=== PATIENT | female | born 1970 | race American Indian/Alaskan Native ===

== ENCOUNTER 2019-11-21 14:57 | Emergency (ER) | payer OTHER, MEDICAID ==
--- NOTE | 2019-11-21 15:09 | Event Note ---
ED Screening Note ED Screening Note: 49 yo female with head trauma 2 days ago, workman's compensation case This initial assessment/diagnostic orders/clinical plan/treatment(s) is/are subject to change based on patients health status, clinical progression and re- assessment by fellow clinical providers in the ED. Further treatment and workup at subsequent clinical providers discretion. Patient/guardian urged not to elope from the ED as their condition may be serious if not clinically assessed and managed. Initial orders include: to treatment room
[2019-11-21 15:10] VITALS: BP 120/78
[2019-11-21] MEDS ORDERED: HYDROcodone/ACETAMINOPHEN 5-325 MG TAB PO ONE (17:18)
--- NOTE | 2019-11-21 17:23 | Emergency Department Report ---
<JESSICA WONG - Last Filed: 11/21/19 17:21> ED Head Trauma HPI - General Chief complaint: Head Injury Stated complaint: WORK RELATED/POSS CONCUSSION Time Seen by Provider: 11/21/19 17:18 Source: patient Mode of arrival: Ambulatory Limitations: No Limitations - History of Present Illness Initial comments: 49-year-old Afro-Chinese female was working in a angled low ceiling area and stood up striking her head on the caudal aspect resulting in caudal cephalgia associated with what she describes as presyncope. She reports having a bout of nausea and blurred vision which continues to go in and out. Reports no fever, chills, sweats no neck pain no chest pain no hemoptysis no hematemesis no clear fluid or any fluid draining from the nose or the ears. No broken skin to her knowledge MD Complaint: head injury Loss of Consciousness: no Previous Trauma to this Area: No Place: work Radiation: none - Related Data Previous Rx's Medication Instructions Recorded Last Taken Type traMADoL [Ultram] 50 mg PO Q6HR PRN #10 tablet 11/21/19 Unknown Rx Allergies/Adverse reactions: Allergies Allergy/AdvReac Type Severity Reaction Status Date / Time No Known Allergies Allergy Unverified 11/21/19 14:59 ED Review of Systems Comment: All other systems reviewed and negative ED Past Medical Hx - Past Medical History Additional medical history: MVP - Surgical History Additional Surgical History: TUBALLIG/ CYST REMOVAL HEART - Social History Smoking Status: Never Smoker Substance Use Type: None - Medications Home Medications: Home Medications Medication Instructions Recorded Confirmed Last Taken Type traMADoL [Ultram] 50 mg PO Q6HR PRN #10 tablet 11/21/19 Unknown Rx ED Physical Exam - General Limitations: No Limitations General appearance: alert, in no apparent distress - Head Head exam: Present: atraumatic, normocephalic - Eye Eye exam: Present: normal appearance, PERRL, EOMI Pupils: Present: normal accommodation - ENT ENT exam: Present: normal exam, normal orophraynx, mucous membranes moist, TM's normal bilaterally - Neck Neck exam: Present: normal inspection - Respiratory Respiratory exam: Present: normal lung sounds bilaterally. Absent: respiratory distress, wheezes, rales - Cardiovascular Cardiovascular Exam: Present: regular rate, normal rhythm. Absent: systolic murmur, diastolic murmur, rubs, gallop - GI/Abdominal GI/Abdominal exam: Present: soft, normal bowel sounds - Extremities Exam Extremities exam: Present: normal inspection - Back Exam Back exam: Present: normal inspection. Absent: CVA tenderness (R), CVA tenderness (L) - Neurological Exam Neurological exam: Present: alert, oriented X3, CN II-XII intact, normal gait - Psychiatric Psychiatric exam: Present: normal affect, normal mood - Skin Skin exam: Present: warm, dry, intact, normal color. Absent: rash ED Disposition Clinical Impression: Head injury due to trauma, Cephalgia Disposition: DC- TO HOME OR SELFCARE Condition: Stable Instructions: Concussion (ED), Minor Head Injury (ED), Acute Headache (ED) Prescriptions: traMADoL [Ultram] 50 mg PO Q6HR PRN #10 tablet PRN Reason: Pain Referrals: [facility] [Provider Group] - 3-5 Days Forms: Work/School Release Form(ED) <KARLA SKY - Last Filed: 11/21/19 21:00> ED Review of Systems ROS: Stated complaint: WORK RELATED/POSS CONCUSSION Other details as noted in HPI ED Course Vital Signs 11/21/19 11/21/19 15:05 17:43 Temperature 98.0 F Pulse Rate 87 Respiratory 20 18 Rate Blood Pressure 120/78 O2 Sat by Pulse 100 Oximetry - Reevaluation(s) Reevaluation #1: 11/21/19 20:01 Chart received from BURKE Wong pending CT of head at 1900. CT of the head report reviewed with the following findings No acute abnormality. Negative unenhanced CT of the brain. Patient discharged home stable. Patient started on pain medication for comfort. Patient informed to monitor for signs of concussion and given instructions. Follow-up with PCP as instructed. Patient was given strict return instructions. 11/21/19 20:03 11/21/19 20:59 - Radiology Data Radiology results: report reviewed CT BRAIN: 11/21/2019 INDICATION / CLINICAL INFORMATION: heache and injury. COMPARISON: None available. FINDINGS: BRAIN/INTRACRANIAL STRUCTURES: Unenhanced CT images of the brain demonstrate no evidence of acute intracranial abnormality. Ventricles and sulci are normal in size and shape. There is no evidence of acute ischemic injury, hemorrhage, or mass. There are no abnormal extra- axial fluid collections. EXTRACRANIAL STRUCTURES: Unremarkable. IMPRESSION: No acute abnormality. Negative unenhanced CT of the brain. Critical care attestation.: If time is entered above; I have spent that time in minutes in the direct care of this critically ill patient, excluding procedure time.
--- NOTE | 2019-11-21 19:49 | Cat Scan Report ---
CT BRAIN: 11/21/2019 INDICATION / CLINICAL INFORMATION: heache and injury. COMPARISON: None available. FINDINGS: BRAIN/INTRACRANIAL STRUCTURES: Unenhanced CT images of the brain demonstrate no evidence of acute int racranial abnormality. Ventricles and sulci are normal in size and shape. There is no evidence of acute ischemic injury, hemorrhage, or mass. There are no abnormal extra-axial fluid collections. EXTRACRANIAL STRUCTURES: Unremarkable. IMPRESSION: No acute abnormality. Negative unenhanced CT of the brain. All CT scans at this location are performed using dose reduction to ALARA by means of automated expos ure control. Signer Name: Aaron Barton MD Signed: 11/21/2019 7:44 PM Workstation Name: [id number]
[2019-11-21] MEDS ORDERED: MECLIZINE 25 MG TAB ONE (20:33)
[2019-11-21] MEDS ORDERED: MECLIZINE 25 MG TAB PO ONE (21:22)
== END 2019-11-21 20:30 | disposition home or self-care (01) ==
LOC: ED 14:57
DX: S09.90XA Unspecified injury of head, initial encounter (principal); W22.09XA Striking against other stationary object, initial encounter; Y93.89 Activity, other specified; Y92.89 Other specified places as the place of occurrence of the external cause; Y99.8 Other external cause status
CPT/HCPCS: 70450; 99283